=== PATIENT | female | born 1975 | race Caucasian/White ===

== ENCOUNTER 2018-03-03 05:00 | Observation (INO) | payer BC, OTHER ==
[2018-03-03] MEDS ORDERED: LACTATED RINGERS 1,000 ML ONE ×2 (05:55→06:41)
[2018-03-03] MEDS ORDERED: BICITRA ONE (06:45)
[2018-03-03] MEDS ORDERED: PEPCID IV ONE (06:45)
[2018-03-03] MEDS ORDERED: ANCEF/STERILE WATER 2 GM/20 ML 2 GM/20 ML SYRINGE IV ONE (06:45)
[2018-03-03] MEDS ORDERED: REGLAN ONE (06:45)
--- NOTE | 2018-03-03 07:06 | History and Physical Report ---
History of Present Illness Date of examination: 03/03/18 Date of admission: 03/03/18 05:42 Chief complaint: Primary History of present illness: 42-year-old at 39+ weeks gestation presents for primary due to breech presentation, she is a [employer] patient. ANC complicated by AMA , history of macrosomia and polyhydramnios. Past History Past Medical History: no pertinent history Past Surgical History: no surgical history [employer] History: denies: cancer, chlamydia, fibroids, gonorrhea, hepatitis B, hepatitis C, herpes, HIV, trichomonas Social history: full code. denies: Lives alone, lives with family, smoking, IV drug use - Obstetrical History Expected Date of Delivery: 03/10/18 Actual Gestation: 39 Week(s) 0 Day(s) : 4 Para: 1 Review of Systems Constitutional: no fever, no chills, no weakness, no lethargy Cardiovascular: no chest pain, no palpitations, no edema, no syncope, no lightheadedness, no dyspnea on exertion, no high blood pressure Respiratory: no cough, no shortness of breath, no dyspnea on exertion Gastrointestinal: no abdominal pain, no nausea, no vomiting, no heartburn, no indigestion, no dyspepsia/bloating Genitourinary: no vaginal bleeding, no vaginal discharge, no leakage of fluid, no contractions - Physical Exam Cardiovascular: Regular rate, Normal S1, Normal S2 Lungs: Positive: Clear to auscultation, Normal air movement Abdomen: Positive: normal appearance, soft. Negative: distention, tenderness, guarding, rigidity Genitourinary (Female): Positive: normal external genitalia Uterus: Positive: enlarged (EFW ~ 3600). Negative: tender Extremities: Positive: normal - Obstetrical FHR: category 1 Results All other labs normal. Assessment and Plan A: 42-year-old at 39 weeks with breech presentation for primary -Cat 1 tracing P: -Admit -Routine labs -Has been consented -Proceed to the OR once available - Patient Problems (1) 39 weeks gestation of Current Visit: Yes Status: Acute (2) Breech presentation Current Visit: Yes Status: Acute
--- NOTE | 2018-03-03 07:22 | Anesthesia Day of Surgery ---
Anesthesia Day of Surgery - Day of Surgery Patient Examined: Yes Patient H&P Reviewed: Yes Patient is NPO: Yes
--- NOTE | 2018-03-03 07:22 | Anesthesia Consultation ---
Anesthesia Consult and Med Hx Date of service: 03/03/18 - Airway Anesthetic Teeth Evaluation: Good ROM Head & Neck: Adequate Mental/Hyoid Distance: Adequate Mallampati Class: Class II Intubation Access Assessment: Probably Good - Pre-Operative Health Status ASA Pre-Surgery Classification: ASA2 Proposed Anesthetic Plan: Epidural, Spinal - Pulmonary Hx Asthma: No COPD: No Hx Pneumonia: No - Cardiovascular System Hx Hypertension: No - Central Nervous System Hx Seizures: No Hx Psychiatric Problems: No - Endocrine Hx Renal Disease: No Hx End Stage Renal Disease: No Hx Hypothyroidism: No Hx Hyperthyroidism: No - Hematic Hx Anemia: No Hx Sickle Cell Disease: No - Other Systems Hx Alcohol Use: No
[2018-03-03 07:32] LABS: Basophils # (Auto) 0.1 K/mm3 (0.0-0.1); Basophils % (Auto) 0.4 % (0.0-1.8); Eosinophils # (Auto) 0.2 K/mm3 (0.0-0.4); Eosinophils % (Auto) 1.2 % (0.0-4.3); Hematocrit 38.2 % (30.3-42.9); Hemoglobin 12.5 gm/dl (10.1-14.3); Lymphocytes # (Auto) 3.9 K/mm3 (1.2-5.4); Lymphocytes % (Auto) 26.3 % (13.4-35.0); Mean Corpuscular HGB Conc 33 % (30-34); Mean Corpuscular Hemoglobin 28 pg (28-32); Mean Corpuscular Volume 85 fl (79-97); Monocytes # (Auto) 0.8 K/mm3 (0.0-0.8); Monocytes % (Auto) 5.6 % (0.0-7.3); Platelet Count 257 K/mm3 (140-440); Red Cell Distribution Width 14.2 % (13.2-15.2)
--- NOTE | 2018-03-03 07:55 | Event Note ---
Date: 03/03/18 Bedside scan shows infant now in cephalic presentation., most likely unstable lie. Obtain confirmation rescan now, and most likely discharge if cephalic. Advised patient that she should present to the hospital [facility] when in labor and have confirmatory scan to rule out malpresentation.
[2018-03-03] MEDS ORDERED: ANCEF/STERILE WATER 2 GM/20 ML 2 GM/20 ML SYRINGE IV NR (08:00)
[2018-03-03] MEDS ORDERED: DILAUDID IV PRN ×2 (08:00→08:30)
[2018-03-03] MEDS ORDERED: SODIUM CHLORIDE FLUSH SYRINGE 10 ML IV PRN (08:00)
[2018-03-03] MEDS ORDERED: PEPCID IV NR (08:00)
[2018-03-03] MEDS ORDERED: BICITRA PO NR (08:00)
[2018-03-03] MEDS ORDERED: PITOCin/NS 20 UNIT/1000ML DRIP 20 UNITS/1,000 ML BAG IV SCH (08:00)
[2018-03-03] MEDS ORDERED: LACTATED RINGERS 1,000 ML IV SCH (08:00)
[2018-03-03] MEDS ORDERED: BENADRYL IV PRN (08:00)
[2018-03-03] MEDS ORDERED: TORADOL IV PRN (08:00)
[2018-03-03] MEDS ORDERED: NARCAN 0.4 MG/1 ML IV PRN (08:00)
[2018-03-03] MEDS ORDERED: EMLA TP PRN (08:00)
[2018-03-03] MEDS ORDERED: PHENERGAN PO PRN (08:00)
[2018-03-03] MEDS ORDERED: PHENERGAN PR PRN (08:00)
[2018-03-03] MEDS ORDERED: REGLAN IV NR (08:00)
--- NOTE | 2018-03-03 08:33 | Ultrasound Report ---
OB LIMITED INDICATION: Malpresentation. COMPARISON: None similar at this institution. TECHNIQUE: Transabdominal grayscale ultrasound with Doppler interrogation. Gestation: Zaidi Position: Cephalic Heart Rate: 133 BPM CONCLUSION: Findings, as above.
== END 2018-03-03 08:24 | disposition home or self-care (01) ==
LOC: OB 05:00 → INTOOBSV 05:42 → APU 05:42 → UNDOADMOB 05:42 → UNDODISOB 08:24 → UNDODISIN 03-06 11:18
PROVIDERS: ADMIT Obstetrics & Gynecology; ATTEND Obstetrics & Gynecology
DX: O32.1XX0 Maternal care for breech presentation, not applicable or unspecified (principal); O09.523 Supervision of elderly multigravida, third trimester; Z3A.39 39 weeks gestation of pregnancy
CPT/HCPCS: 36415; 59025; 76815; 85025; 86850; 86900; 86901; G0378; G0379; J7120; J0690; J2765